=== PATIENT | female | born 1970 | race Caucasian/White ===

== ENCOUNTER 2019-11-03 22:02 | Emergency (ER) | payer BC ==
[~2019-11-03] VITALS: Ht 167.6 cm; Wt 135.0 kg
[2019-11-03 22:08] VITALS: TEMP 97.4
[2019-11-03 23:19] LABS: COLLECTION METHOD CLEAN CATCH
[2019-11-03] MEDS ORDERED: NORCO 325 MG-51 TAB PO (23:24)
[2019-11-03 23:25] LABS: PH 5 (5-8); SQUAMOUS EPITHELIAL 0-2 /hpf; URINE APPEARANCE Clear; URINE BACTERIA None Seen /hpf; URINE BILIRUBIN Negative (NEGATIVE); URINE BLOOD Negative (NEGATIVE); URINE COLOR Yellow; URINE GLUCOSE 3+ (NEGATIVE); URINE KETONE Trace (NEGATIVE); URINE LEUKOCYTE ESTERASE Negative (NEGATIVE); URINE NITRATE Negative (NEGATIVE); URINE PROTEIN(semi-quant) Negative (NEGATIVE); URINE RBC 0-2 /hpf; URINE UROBILINOGEN Negative (NEGATIVE)
[2019-11-04 00:08] VITALS: BP 154/70; PULSE 66
== END 2019-11-04 00:05 | disposition home or self-care (01) ==
LOC: COL.ER 22:02
PROVIDERS: Emergency Medicine
DX: M54.5 Low back pain (principal); E66.9 Obesity, unspecified
CPT/HCPCS: J1170